=== PATIENT | male | born 1950 | race Caucasian/White ===

== ENCOUNTER 2017-11-30 06:03 | Day surgery (SDC) | payer MEDICARE, OTHER ==
[2016-03-20 08:01] VITALS: BMI 29.5
[2017-11-30 06:52] VITALS: O2SAT 100
[2017-11-30] MEDS ORDERED: Propofol 10 mg/ml Inj (20 ML) ONE (07:47)
--- NOTE | 2017-11-30 07:47 | CP.SDSHP ---
Same Day Surgery H & P - History Proposed Procedure: EGD Pre-Op Diagnosis: SEE NOTES - Allergies Allergies: Allergies No Known Allergies Allergy (Unverified 05/27/14 23:10) - Physical Exam Vital Signs: Vital Signs 11/30/17 06:45 Temperature 98.2 F Pulse Rate 55 L Respiratory 19 Rate Blood Pressure 152/70 H O2 Sat by Pulse 100 Oximetry Neuro: WNL Heart: Other Lungs: WNL GI: Other - {Optional Preform as Required} Breast: WNL Abdomen: Other Rectal: Other Integument: WNL : WNL Ortho: Other ENT: WNL - Impression Pt. Evaluated Today:Candidate for Anesthesia & Procedure: Yes - Date & Time Time: 07:47 Short Stay Discharge - Short Stay Discharge Admitting Diagnosis/Reason for Visit: FUNCTIONAL DYSPEPSIA Disposition: HOME/ ROUTINE
[2017-11-30] MEDS ORDERED: Lactated Ringer's 1,000 ML IV ONE (07:51)
[2017-11-30 08:25] VITALS: TEMP 97
[2017-11-30] MEDS ORDERED: Belladonna-Phenobarbital PO ONE (08:25)
[2017-11-30] MEDS ORDERED: Pantoprazole 40 mg EC Tab PO ONE (08:35)
[2017-11-30 11:30] VITALS: BP 152/76; PULSE 54; RESP 16
== END 2017-11-30 11:20 | disposition home or self-care (01) ==
LOC: C.ENDO 06:03
PROVIDERS: ATTEND Specialist
DX: B37.81 Candidal esophagitis (principal); K29.00 Acute gastritis without bleeding; K30 Functional dyspepsia; K44.9 Diaphragmatic hernia without obstruction or gangrene
CPT/HCPCS: 43239; 88305; 88342; J2704; J7120

== ENCOUNTER 2017-12-07 05:59 | Day surgery (SDC) | payer MEDICARE, OTHER ==
[2016-03-20 08:01] VITALS: BMI 29.5
--- NOTE | 2017-12-07 07:50 | CP.SDSHP ---
Same Day Surgery H & P - History Proposed Procedure: COLONSCOPY Pre-Op Diagnosis: SEE NOTES - Previous Medical/Surgical History Cardiac: Hypertension Endocrine/Metabolic: Other - Allergies Allergies: Allergies No Known Allergies Allergy (Unverified 05/27/14 23:10) - Physical Exam General Appearance: N Vital Signs: Vital Signs 12/07/17 06:40 Temperature 97.5 F L Pulse Rate 57 L Respiratory 19 Rate Blood Pressure 142/68 O2 Sat by Pulse 100 Oximetry Neuro: WNL Heart: Other Lungs: WNL GI: Other - {Optional Preform as Required} Breast: WNL Abdomen: Other Rectal: Other Integument: WNL : WNL Ortho: Other ENT: WNL - Impression Pt. Evaluated Today:Candidate for Anesthesia & Procedure: Yes - Date & Time Time: 07:49 Short Stay Discharge - Short Stay Discharge Admitting Diagnosis/Reason for Visit: ABDOMINAL PAIN Disposition: HOME/ ROUTINE
[2017-12-07] MEDS ORDERED: Propofol 10 mg/ml Inj (20 ML) ONE (07:56)
[2017-12-07] MEDS ORDERED: Lactated Ringer's 500 ML IV SCH (08:15)
[2017-12-07] MEDS ORDERED: Pantoprazole 40 mg EC Tab PO ONE (08:40)
[2017-12-07] MEDS ORDERED: Belladonna-Phenobarbital PO ONE (08:45)
[2017-12-07 09:01] VITALS: TEMP 97.3; O2SAT 99
[2017-12-07 09:07] VITALS: BP 130/65; PULSE 56; RESP 20
== END 2017-12-07 09:30 | disposition home or self-care (01) ==
LOC: C.ENDO 05:59
PROVIDERS: ATTEND Specialist
DX: R10.9 Unspecified abdominal pain (principal); Z12.11 Encounter for screening for malignant neoplasm of colon; K64.8 Other hemorrhoids; Q43.8 Other specified congenital malformations of intestine
CPT/HCPCS: 45380; 88305; J2704; J3010; J7120

== ENCOUNTER 2018-06-18 08:56 | Emergency (ER) | payer MEDICARE, OTHER ==
[2018-06-18 08:57] VITALS: BMI 29.5
[2018-06-18 09:09] VITALS: O2SAT 98
--- NOTE | 2018-06-18 11:05 | C.PDOC ---
History Of Present Illness 68 y/o male presents to ED for evaluation of productive cough with yellow sputum , and chest congestion for the last 3 days. Contrary to triage, pt is not complaining of shortness of breath. Denies fever, chills, or any other associated symptoms. Time Seen by Provider: 06/18/18 09:36 Chief Complaint (Nursing): Cough, Cold, Congestion History Per: Patient History/Exam Limitations: no limitations Onset/Duration Of Symptoms: Days Current Symptoms Are (Timing): Still Present Recent travel outside of the [place]: No Additional History Per: Patient Past Medical History Reviewed: Historical Data, Nursing Documentation, Vital Signs Vital Signs: Last Vital Signs Temp 98.4 F 06/18/18 11:10 Pulse 64 06/18/18 11:10 Resp 18 06/18/18 11:10 BP 148/80 06/18/18 11:10 Pulse Ox 98 06/18/18 12:01 - Medical History PMH: Asthma (MILD), Gastritis, HTN, Hypercholesterolemia Denies: Chronic Kidney Disease Surgical History: Coronary Stent (X2), Endoscopy Family History: States: Unknown Family Hx - Social History Hx Tobacco Use: No Hx Alcohol Use: No Hx Substance Use: No - Immunization History Hx Tetanus Toxoid Vaccination: No Hx Influenza Vaccination: No Hx Pneumococcal Vaccination: No Review Of Systems Except As Marked, All Systems Reviewed And Found Negative. Constitutional: Negative for: Fever, Chills ENT: Positive for: Nose Congestion Respiratory: Positive for: Cough, Sputum. Negative for: Shortness of Breath Physical Exam - Physical Exam Appears: Non-toxic, No Acute Distress Skin: Normal Color, Warm, Dry Head: Atraumatic, Normacephalic Eye(s): bilateral: Normal Inspection Oral Mucosa: Moist Cardiovascular: Rhythm Regular Respiratory: Normal Breath Sounds, No Rales, No Rhonchi, No Wheezing, Other ( speaking in full sentences) Gastrointestinal/Abdominal: Soft, No Tenderness Extremity: Normal ROM Neurological/Psych: Oriented x3, Normal Speech ED Course And Treatment O2 Sat by Pulse Oximetry: 98 (RA) Pulse Ox Interpretation: Normal - Radiology CXR: Interpreted by Me, Viewed By Me CXR Interpretation: Yes: No Acute Disease Medical Decision Making Medical Decision Making: Plan: CXR Zithromax Pt is being discharged home, with instructions to follow up with your PMD within 1-2 days. Disposition - Disposition Disposition: HOME/ ROUTINE Disposition Time: 11:02 Condition: STABLE Additional Instructions: Follow up with your PMD within 1-2 days. Return to ED if feel worse. Prescriptions: Fluticasone Nasal [Flonase] 1 spr NS BID #1 spr Benzonatate [Tessalon Perles] 2 tab PO TID #60 sgl Azithromycin [Zithromax] 250 mg PO DAILY #4 tab Forms: [employer] (Filipino) Print Language: LUXEMBOURGISH - Clinical Impression Clinical Impression: Bronchitis - PA / CONCRETE SAW OPERATOR / Resident Statement MD/DO has reviewed & agrees with the documentation as recorded. - Scribe Statement The provider has reviewed the documentation as recorded by the Scribe KP All medical record entries made by the Scribe were at my direction and personally dictated by me. I have reviewed the chart and agree that the record accurately reflects my personal performance of the history, physical exam, medical decision making, and the department course for this patient. I have also personally directed, reviewed, and agree with the discharge instructions and disposition.
[2018-06-18 11:11] VITALS: BP 148/80; PULSE 64; RESP 18; TEMP 98.4
--- NOTE | 2018-06-18 13:19 | RAD ---
Date of service: 06/18/2018 HISTORY: productive cough/yellow sputum COMPARISON: Comparison chest 05/27/2014 TECHNIQUE: Chest PA and lateral FINDINGS: LUNGS: No focal consolidation. There is a small elliptical shaped nodular density left lateral lower lung field overlying the left posterior 8th rib that could represent nipple shadow artifact however followup nonemergent CT scan of the chest could be performed to exclude granuloma or other parenchymal nodule . There appears to be mild biapical pleural thickening PLEURA: No significant pleural effusion identified. No pneumothorax apparent. CARDIOVASCULAR: Normal. OSSEOUS STRUCTURES: No significant abnormalities. VISUALIZED UPPER ABDOMEN: Normal. OTHER FINDINGS: None. IMPRESSION: No focal consolidation. There is a small elliptical shaped nodular density left lateral lower lung field overlying the left posterior 8th rib that could represent nipple shadow artifact however followup nonemergent CT scan of the chest could be performed to exclude granuloma or other parenchymal nodule . There appears to be mild biapical pleural thickening. Note this report was placed in PA review folder followup.
== END 2018-06-18 11:10 | disposition home or self-care (01) ==
LOC: C.ER 08:56
DX: J40 Bronchitis, not specified as acute or chronic (principal)

== ENCOUNTER 2018-09-13 08:57 | Emergency (ER) | payer MEDICARE, OTHER ==
[2018-09-13 08:58] VITALS: BMI 29.5
[2018-09-13 09:31] VITALS: TEMP 97.5; O2SAT 100
--- NOTE | 2018-09-13 09:40 | C.PDOC ---
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 Patient also complains of new onset left lower abdominal pain. Patient states abdominal pain is "crampy" and admits to " possible nausea". Patient denies fever, chills, dizziness, headache, vomiting, back pain or any other complaints at this time. <Michelle Ramos - Last Filed: 09/13/18 13:02> History Per: Patient History/Exam Limitations: no limitations Onset/Duration Of Symptoms: Hrs Current Symptoms Are (Timing): Still Present Number Of Bleeding Episodes: One Quality Of Discomfort: Cramping Associated Symptoms: Nausea, Rectal Bleeding <RichardMichelle - Last Filed: 09/13/18 13:02> <Mariella Redmond - Last Filed: 09/13/18 14:47> Time Seen by Provider: 09/13/18 09:39 Chief Complaint (Nursing): GI Problem Past Medical History Reviewed: Historical Data, Nursing Documentation, Vital Signs Vital Signs: Last Vital Signs Temp 97.5 F L 09/13/18 09:27 Pulse 71 09/13/18 09:27 Resp 18 09/13/18 09:27 BP 157/89 H 09/13/18 09:27 Pulse Ox 100 09/13/18 09:27 - Medical History PMH: Asthma (MILD), Gastritis, HTN, Hypercholesterolemia Surgical History: Coronary Stent (X2), Endoscopy Family History: States: No Known Family Hx - Social History Hx Tobacco Use: No Hx Alcohol Use: No Hx Substance Use: No - Immunization History Hx Tetanus Toxoid Vaccination: No Hx Influenza Vaccination: No Hx Pneumococcal Vaccination: No <RichardMichelle - Last Filed: 09/13/18 13:02> Vital Signs: Last Vital Signs Temp 97.5 F L 09/13/18 09:27 Pulse 57 L 09/13/18 10:38 Resp 18 09/13/18 10:38 BP 165/77 H 09/13/18 10:38 Pulse Ox 100 09/13/18 13:03 <Mariella Redmond - Last Filed: 09/13/18 14:47> Review Of Systems Constitutional: Negative for: Fever, Chills Gastrointestinal: Positive for: Nausea, Abdominal Pain, Hematochezia, Rectal Shine n. Negative for: Vomiting Genitourinary: Negative for: Dysuria, Hematuria Musculoskeletal: Negative for: Back Pain <Michelle Ramos - Last Filed: 09/13/18 13:02> Physical Exam - Physical Exam Appears: Non-toxic, No Acute Distress Skin: Warm, Dry, No Rash Head: Atraumatic, Normacephalic Eye(s): bilateral: Normal Inspection Oral Mucosa: Moist Neck: Supple Cardiovascular: Rhythm Regular Respiratory: Normal Breath Sounds, No Rales, No Rhonchi, No Wheezing Gastrointestinal/Abdominal: Soft, Tenderness (LLQ), No Distention, No Guarding, No Rebound Back: No CVA Tenderness Neurological/Psych: Oriented x3, Normal Speech, Normal Cognition <Michelle Ramos - Last Filed: 09/13/18 13:02> ED Course And Treatment - Laboratory Results Result Diagrams: 09/13/18 10:04 09/13/18 10:04 O2 Sat by Pulse Oximetry: 100 (RA) Pulse Ox Interpretation: Normal <Michelle Ramos - Last Filed: 09/13/18 13:02> - Laboratory Results Result Diagrams: 09/13/18 10:04 09/13/18 10:04 - CT Scan/US ct abd/pelvis Other Rad Studies (CT/US): Read By Radiologist, Radiology Report Reviewed CT/US Interpretation: Accession No. : [id number]. Patient Name / ID : [id number] / [id number]. Exam Date : 09/13/2018 12:35:56 ( Approved ). Study Comment : Sex / Age : M / 68Y. Creator : Leila Roque MD. Dictator : Leila Roque MD. Boiler Coverer : Internal Control Specialist : Leila Roque MD. Approver2 : Report Date : 09/13/2018 14:09:25. My Comment : . Date of service: 09/13/2018. PROCEDURE: CT Abdomen and Pelvis with contrast. HISTORY: GI Bleeding LLQ PAIN. COMPARISON: None available. TECHNIQUE: Contrast dose: 100 cc Visipaque 320. Radiation dose: Total exam DLP = 680.58 mGy-cm. This CT exam was performed using one or more of the following dose reduction techniques: Automated exposure control, adjustment of the mA and/or kV according to patient size, and/or use of iterative reconstruction technique. FINDINGS: LOWER THORAX: No visible consolidation, pleural effusion, or pneumothorax. LIVER: 13 mm heterogeneous hypodensity within the posterior right hepatic lobe (series 3, image 24), indeterminate. Too small to characterize hepatic dome hypodensity; statistically likely cyst or hemangioma. GALLBLADDER AND BILE DUCTS: Unremarkable. PANCREAS: Fatty atrophy. SPLEEN: Unremarkable. ADRENALS: Left adrenal gland hypertrophy. The right adrenal gland appears unremarkable. KIDNEYS AND URETERS: The kidneys enhance symmetrically. No hydronephrosis or obstructing calculus identified. 13 mm left renal hypodensity approximately 22 HU, measures higher than expected for simple cyst. Punctate nonobstructing left renal calculus. VASCULATURE: No aortic aneurysm. Atherosclerotic calcifications/mural plaque present. BOWEL: Stomach is nondistended. Lack of oral contrast limits evaluation for bowel pathology. Bowel loops appear within normal limits of caliber without evidence of obstruction. Wall thickening and inflammatory changes involving the left and sigmoid colon consistent with acute diverticulitis. APPENDIX: The appendix appears within normal limits of caliber. No secondary signs of acute appendicitis. PERITONEUM: No significant free fluid. No definite free air. LYMPH NODES: No bulky adenopathy identified. BLADDER: Unremarkable. REPRODUCTIVE: Unremarkable. BONES: Degenerative changes of the spine. OTHER FINDINGS: None. IMPRESSION: Wall thickening and inflammatory changes involving the left and sigmoid colon consistent with acute diverticulitis. Additional findings as above. <Mariella Redmond - Last Filed: 09/13/18 14:47> Progress - Data Reviewed Data Reviewed: Lab, Diagnostic imaging, Old records <Michelle Ramos - Last Filed: 09/13/18 13:02> Disposition - Disposition Disposition Time: 13:00 <Michelle Ramos - Last Filed: 09/13/18 13:02> Counseled Patient/Family Regarding: Diagnosis, Need For Followup, Rx Given - Disposition Disposition Time: 14:45 <Mariella Redmond - Last Filed: 11/27/18 14:47> - Disposition Referrals: [facility] [Outside] Condition: STABLE Additional Instructions: SEGUIR CON ROY SHAMAR / MORALESA EN 1-2 BRIGHT UTILIZAR ANTIBIOTICOS HASTA TERMINAR VUELVA A LA JERRY DE EMERGENCIA SI XOCHITL SNTOMAS SE HACEN PEOR FOLLOW UP WITH YOUR DOCTOR/CLINIC IN 1-2 DAYS USE ANTIBIOTICS UNTIL FINISHED RETURN TO EMERGENCY ROOM IF YOUR SYMPTOMS BECOME WORSE Prescriptions: Ciprofloxacin [Cipro] 1 tab PO BID #14 tab metroNIDAZOLE [Flagyl] 500 mg PO TID #21 tab traMADol [Ultram] 50 mg PO BID PRN #12 tab PRN Reason: pain Instructions: Diverticulitis Forms: Work Excuse Print Language: ARMENIAN - Clinical Impression Clinical Impression: Diverticulitis - Scribe Statement The provider has reviewed the documentation as recorded by the Scribe Aissatou Stahl All medical record entries made by the Scribe were at my direction and personally dictated by me. I have reviewed the chart and agree that the record accurately reflects my personal performance of the history, physical exam, medical decision making, and the department course for this patient. I have also personally directed, reviewed, and agree with the discharge instructions and disposition. <Michelle Ramos - Last Filed: 09/13/18 13:02> Physician Patient Turnover Patient Signed Over To: Mariella Redmond Handoff Comments: FU CT, DISPO <Michelle Ramos - Last Filed: 09/13/18 13:02> Addendum Addendum: 09/13/18 14:41 Patient resting comfortably, states he feels better. On exam, he has mild LLQ TTP without rebound/guarding. Patient is comfortable being discharged home with antibiotics. He was instructed to return to ED immediately if symptoms worsen. Rxs for Cipro, Flagyl and Tramadol given. <Mariella Redmond - Last Filed: 09/13/18 14:47>
[2018-09-13] MEDS ORDERED: Sodium Chloride 0.9% 1,000 ML IV ONE (09:41)
[2018-09-13] MEDS ORDERED: Sodium Chloride 0.9% 1,000 ML ONE (10:07)
[2018-09-13 10:19] LABS: BASO % 0.6 % (0.0-2.0); EOS # 0.1 K/uL (0.0-0.7); EOS % 2.4 % (0.0-4.0); HEMOGLOBIN 14.4 g/dL (12.0-18.0); LYMPH # 0.8 K/uL (1.0-4.3); LYMPH % 27.6 % (20.0-40.0); MEAN CELL VOLUME 89.4 fL (80.0-94.0); MEAN CORPUSCULAR HGB CONC 33.6 g/dL (33.0-37.0); MEAN PLATELET VOLUME 10.4 fL (7.2-11.7); MONO # 0.3 K/uL (0.0-0.8); MONO % 8.2 % (0.0-10.0); NEUT # 1.9 K/uL (1.8-7.0); NEUT % 61.2 % (50.0-75.0); NRBC % 0.1 % (0.0-2.0); RBC 4.8 Mil/uL (4.40-5.90); RED CELL DISTRIBUTION WIDTH 12.8 % (11.5-14.5)
[2018-09-13 10:26] LABS: INR 1.1; PROTHROMBIN TIME 12.1 SECONDS (9.7-12.2)
[2018-09-13 10:29] LABS: ALB/GLOB RATIO 1.4 (1.0-2.1); ALBUMIN 4.2 g/dL (3.5-5.0); ALT/SGPT 29 U/L (21-72); AST/SGOT 23 U/L (17-59); BLOOD UREA NITROGEN 12 mg/dL (9-20); CALCIUM 9.1 mg/dl (8.6-10.4); GFR NON-AFRICAN AMERICAN > 60
[2018-09-13] MEDS ORDERED: Iodixanol 320 MG/ML 100 ML BOTTLE IV ONE (12:11)
--- NOTE | 2018-09-13 14:13 | CT ---
Date of service: 09/13/2018 PROCEDURE: CT Abdomen and Pelvis with contrast HISTORY: GI Bleeding LLQ PAIN COMPARISON: None available TECHNIQUE: Contrast dose: 100 cc Visipaque 320 Radiation dose: Total exam DLP = 680.58 mGy-cm. This CT exam was performed using one or more of the following dose reduction techniques: Automated exposure control, adjustment of the mA and/or kV according to patient size, and/or use of iterative reconstruction technique. FINDINGS: LOWER THORAX: No visible consolidation, pleural effusion, or pneumothorax. LIVER: 13 mm heterogeneous hypodensity within the posterior right hepatic lobe (series 3, image 24), indeterminate. Too small to characterize hepatic dome hypodensity; statistically likely cyst or hemangioma. GALLBLADDER AND BILE DUCTS: Unremarkable. PANCREAS: Fatty atrophy. SPLEEN: Unremarkable. ADRENALS: Left adrenal gland hypertrophy. The right adrenal gland appears unremarkable. KIDNEYS AND URETERS: The kidneys enhance symmetrically. No hydronephrosis or obstructing calculus identified. 13 mm left renal hypodensity approximately 22 HU, measures higher than expected for simple cyst. Punctate nonobstructing left renal calculus. VASCULATURE: No aortic aneurysm. Atherosclerotic calcifications/mural plaque present. BOWEL: Stomach is nondistended. Lack of oral contrast limits evaluation for bowel pathology. Bowel loops appear within normal limits of caliber without evidence of obstruction. Wall thickening and inflammatory changes involving the left and sigmoid colon consistent with acute diverticulitis. APPENDIX: The appendix appears within normal limits of caliber. No secondary signs of acute appendicitis. PERITONEUM: No significant free fluid. No definite free air. LYMPH NODES: No bulky adenopathy identified. BLADDER: Unremarkable. REPRODUCTIVE: Unremarkable. BONES: Degenerative changes of the spine. OTHER FINDINGS: None. IMPRESSION: Wall thickening and inflammatory changes involving the left and sigmoid colon consistent with acute diverticulitis. Additional findings as above.
[2018-09-13 15:15] VITALS: BP 140/80; PULSE 62; RESP 20
== END 2018-09-13 15:15 | disposition home or self-care (01) ==
LOC: C.ER 08:57
DX: K57.32 Diverticulitis of large intestine without perforation or abscess without bleeding (principal)
CPT/HCPCS: 74177; 80053; 85025; 85610; 85730; 96374; 99285; J2270; J7030; Q9967

== ENCOUNTER 2018-10-25 06:19 | Day surgery (SDC) | payer MEDICARE, OTHER ==
[2018-10-25] MEDS ORDERED: Propofol 10 mg/ml Inj (20 ML) ONE (07:56)
--- NOTE | 2018-10-25 09:01 | CP.SDSHP ---
Same Day Surgery H & P - History Proposed Procedure: EGD Pre-Op Diagnosis: SEE NOTES - Previous Medical/Surgical History Cardiac: Hypertension Endocrine/Metabolic: Other - Allergies Allergies: Allergies No Known Allergies Allergy (Verified 06/18/18 09:09) - Physical Exam General Appearance: N Vital Signs: Vital Signs 10/25/18 06:50 Temperature 98.4 F Pulse Rate 59 L Respiratory 19 Rate Blood Pressure 138/64 O2 Sat by Pulse 100 Oximetry Mental Status: Alert & Oriented x3 Neuro: WNL Heart: Other Lungs: WNL GI: Other - {Optional Preform as Required} Breast: WNL Abdomen: Other Rectal: Other Integument: WNL : WNL Ortho: Other ENT: WNL - Impression Pt. Evaluated Today:Candidate for Anesthesia & Procedure: Yes - Date & Time Time: 09:01 Short Stay Discharge - Short Stay Discharge Admitting Diagnosis/Reason for Visit: MELENA Disposition: HOME/ ROUTINE
[2018-10-25] MEDS ORDERED: Belladonna-Phenobarbital PO STA (09:02)
[2018-10-25 09:39] VITALS: O2SAT 100
[2018-10-25 11:01] VITALS: BP 140/70; PULSE 56; RESP 12; TEMP 98
== END 2018-10-25 10:45 | disposition home or self-care (01) ==
LOC: C.ENDO 06:19
PROVIDERS: ATTEND Specialist
DX: K44.9 Diaphragmatic hernia without obstruction or gangrene (principal); B37.81 Candidal esophagitis
CPT/HCPCS: 43239; 88305; J2001; J2704

== ENCOUNTER 2018-10-27 06:47 | Day surgery (SDC) | payer MEDICARE, OTHER ==
--- NOTE | 2018-10-27 07:56 | CP.SDSHP ---
Same Day Surgery H & P - History Proposed Procedure: colonscopy Pre-Op Diagnosis: SEE NOTES - Previous Medical/Surgical History Cardiac: Hypertension, ASHD/CAD Endocrine/Metabolic: Other Misc: Other - Allergies Allergies: Allergies No Known Allergies Allergy (Verified 06/18/18 09:09) - Physical Exam Vital Signs: Vital Signs 10/27/18 07:01 Temperature 98 F Pulse Rate 72 Respiratory 19 Rate Blood Pressure 129/50 L O2 Sat by Pulse 98 Oximetry Mental Status: Alert & Oriented x3 Neuro: WNL Heart: Other Lungs: WNL GI: Other - {Optional Preform as Required} Breast: WNL Abdomen: Other Rectal: Other Integument: WNL : WNL Ortho: Other ENT: WNL - Impression Pt. Evaluated Today:Candidate for Anesthesia & Procedure: Yes - Date & Time Time: 07:56 Short Stay Discharge - Short Stay Discharge Admitting Diagnosis/Reason for Visit: RECTAL BLEEDING Disposition: HOME/ ROUTINE
[2018-10-27] MEDS ORDERED: Propofol 10 mg/ml Inj (20 ML) ONE ×3 (07:57→08:26)
[2018-10-27] MEDS ORDERED: Lactated Ringer's 1,000 ML IV ONE (08:00)
[2018-10-27] MEDS ORDERED: Belladonna-Phenobarbital PO STA (08:02)
[2018-10-27] MEDS ORDERED: Glucagon Recombinant 1 mg Inj ONE (08:09)
[2018-10-27 08:35] VITALS: TEMP 97.8; O2SAT 100
[2018-10-27 12:45] VITALS: BP 124/64; PULSE 62; RESP 12
== END 2018-10-27 11:30 | disposition home or self-care (01) ==
LOC: C.ENDO 06:47
PROVIDERS: ATTEND Specialist
DX: K62.5 Hemorrhage of anus and rectum (principal); K57.30 Diverticulosis of large intestine without perforation or abscess without bleeding; K64.8 Other hemorrhoids; K58.9 Irritable bowel syndrome, unspecified
CPT/HCPCS: 45380; 88305; J1610; J2704; J7120

== ENCOUNTER 2019-02-08 17:04 | Emergency (ER) | payer MEDICARE, OTHER ==
[2019-02-08 17:04] VITALS: BMI 29.5
--- NOTE | 2019-02-08 17:47 | C.PDOC ---
History Of Present Illness 68 y/o male comes in to ED complaining of pain to his right shoulder, hip, and knee s/p fall earlier today. Patient states he was walking when he tripped on the uneven sidewalk and fell on his right side. Denies hitting his head on the ground or LOC. Denies vomiting. Time Seen by Provider: 02/08/19 17:40 Chief Complaint (Nursing): Lower Extremity Problem/Injury History Per: Patient History/Exam Limitations: no limitations Onset/Duration Of Symptoms: Hrs Current Symptoms Are (Timing): Still Present Past Medical History Reviewed: Historical Data, Nursing Documentation, Vital Signs - Medical History PMH: Asthma (MILD), Gastritis, HTN, Hypercholesterolemia Denies: Chronic Kidney Disease Surgical History: Coronary Stent (X2), Endoscopy Family History: States: No Known Family Hx - Social History Hx Tobacco Use: No Hx Alcohol Use: No Hx Substance Use: No - Immunization History Hx Tetanus Toxoid Vaccination: No Hx Influenza Vaccination: No Hx Pneumococcal Vaccination: No Review Of Systems Constitutional: Negative for: Fever, Chills Musculoskeletal: Positive for: Shoulder Pain (right), Other (Right knee and hip pain) Neurological: Negative for: Weakness, Numbness Physical Exam - Physical Exam Appears: Non-toxic, No Acute Distress Skin: Warm, Dry Head: Atraumatic, Normacephalic Eye(s): bilateral: Normal Inspection Oral Mucosa: Moist Neck: Supple Cardiovascular: Rhythm Regular Respiratory: Normal Breath Sounds, No Wheezing Gastrointestinal/Abdominal: Soft, No Tenderness Extremity: Normal ROM, Tenderness (to palpation of right shoulder, right hip, and right knee), No Pedal Edema, No Calf Tenderness, Capillary Refill (less than 2 seconds), No Swelling, Other (no erythema or ecchymosis; slight abrasion to right knee but skin is intact) Extremity: Bilateral: Normal Color And Temperature Pulses: Left Dorsalis Pedis: Normal, Right Dorsalis Pedis: Normal Neurological/Psych: Oriented x3, Normal Speech, Normal Motor, Normal Sensation Gait: With Assistance (cane) ED Course And Treatment - Other Rad R shoulder XR X-Ray: Read By Radiologist Interpretation: FINDINGS: BONES: Bone alignment and mineralization are normal. There is no acute displaced fracture or bone destruction. 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 The glenohumeral joint is normal. SOFT TISSUES: Normal. OTHER FINDINGS: None. IMPRESSION: No acute displaced fracture or dislocation. R knee XR X-Ray: Read By Radiologist Interpretation: FINDINGS: BONES: Bone alignment and mineralization are normal. There is no acute displaced fracture or bone destruction. JOINTS: There is mild tricompartmental degenerative osteoarthrosis with reduced joint spaces, marginal osteophytes and tibial spiking, worse in the medial compartment. JOINT EFFUSION: There is a moderate suprapatellar joint effusion. OTHER FINDINGS: None. IMPRESSION: No acute displaced fracture or dislocation. Moderate tricompartmental degenerative osteoarthrosis, worse in the medial compartment. Moderate suprapatellar joint effusion. Hip/Pelvis XR X-Ray: Read By Radiologist Interpretation: FINDINGS: BONES: Bone alignment and mineralization are normal. There is no acute displaced fracture or bone destruction. JOINTS: Normal. SOFT TISSUES: Normal. OTHER FINDINGS: None. IMPRESSION: No acute displaced fracture or dislocation. Please note occult fractures cannot be excluded on plain radiographs. If there is a persistent clinical concern, an MRI of the hip may be performed for further evaluation. Medical Decision Making Medical Decision Making: Plan: --Imaging ordered and reviewed with patient --Naproxen 550 mg PO given --patient stable for discharge Disposition Counseled Patient/Family Regarding: Studies Performed, Diagnosis, Need For Followup, Rx Given - Disposition Referrals: Marie Ochoa MD [Medical Doctor] - Miki Kong III, MD [Staff Provider] - Disposition: HOME/ ROUTINE Disposition Time: 19:12 Condition: IMPROVED Additional Instructions: continue Naproxen twice a day for pain Rest, Ice, Compression, and Elevation Follow up with PMD/Ortho if pain persists- MRI may be ordered Return to the ED if symptoms worsen Prescriptions: Naproxen [Naprosyn] 500 mg PO BID #30 tablet Instructions: Hip Pain (DC), Shoulder Pain (DC), Knee Pain (DC) Forms: [employer] (Kyrgyz) Print Language: BELIZEAN - Clinical Impression Clinical Impression: Knee pain, Shoulder pain, right, Right hip pain - 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 - Scribe Statement The provider has reviewed the documentation as recorded by the Scribe Pennie Luciano All medical record entries made by the Scribe were at my direction and personally dictated by me. I have reviewed the chart and agree that the record accurately reflects my personal performance of the history, physical exam, medical decision making, and the department course for this patient. I have also personally directed, reviewed, and agree with the discharge instructions and disposition.
--- NOTE | 2019-02-08 18:34 | RAD ---
Date of service: 02/08/2019 PROCEDURE: Right Knee Radiographs. HISTORY: s/p fall COMPARISON: None. TECHNIQUE: 3 views obtained. FINDINGS: BONES: Bone alignment and mineralization are normal. There is no acute displaced fracture or bone destruction. JOINTS: There is mild tricompartmental degenerative osteoarthrosis with reduced joint spaces, marginal osteophytes and tibial spiking, worse in the medial compartment. JOINT EFFUSION: There is a moderate suprapatellar joint effusion. OTHER FINDINGS: None. IMPRESSION: No acute displaced fracture or dislocation. Moderate tricompartmental degenerative osteoarthrosis, worse in the medial compartment. Moderate suprapatellar joint effusion.
--- NOTE | 2019-02-08 18:36 | RAD ---
PROCEDURE: Right Hip Radiographs. HISTORY: s/p fall COMPARISON: None. TECHNIQUE: 2 views obtained. FINDINGS: BONES: Bone alignment and mineralization are normal. There is no acute displaced fracture or bone destruction. JOINTS: Normal. SOFT TISSUES: Normal. OTHER FINDINGS: None. IMPRESSION: No acute displaced fracture or dislocation. Please note occult fractures cannot be excluded on plain radiographs. If there is a persistent clinical concern, an MRI of the hip may be performed for further evaluation.
--- NOTE | 2019-02-08 18:37 | RAD ---
Date of service: 02/08/2019 PROCEDURE: Radiographs of the Right Shoulder HISTORY: s/p fall COMPARISON: No prior. TECHNIQUE: 3 views obtained. FINDINGS: BONES: Bone alignment and mineralization are normal. There is no acute displaced fracture or bone destruction. 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 The glenohumeral joint is normal. SOFT TISSUES: Normal. OTHER FINDINGS: None. IMPRESSION: No acute displaced fracture or dislocation.
[2019-02-08] MEDS ORDERED: Naproxen 550 mg Tab PO STA (19:11)
[2019-02-08] MEDS ORDERED: Naproxen 550 mg Tab PO ONE (19:18)
[2019-02-08 19:35] VITALS: RESP 20
== END 2019-02-08 19:33 | disposition home or self-care (01) ==
LOC: C.ER 17:04
DX: M25.511 Pain in right shoulder (principal); M25.561 Pain in right knee; M25.551 Pain in right hip